=== PATIENT | male | born 1990 | race Two or more races ===

== ENCOUNTER → 2017-08-02 | Emergency (ER) | payer OTHER ==
[~2017-08-02] VITALS: Ht 177.8 cm; Wt 106.6 kg
[~2017-08-02] MED LIST: AMOX1TAB12 PO; DOLOGESIC-DF 51 EACH PO; IMODIUM A-D2 MG PO; PEPCID40 MG PO; ZOFRAN4 MG PO
== END | disposition home or self-care (01) ==
LOC: ER 20:55
DX: G44.209 Tension-type headache, unspecified, not intractable (principal)

== ENCOUNTER 2017-11-13 17:53 | Emergency (ER) | payer OTHER ==
[~2017-11-13] VITALS: Ht 175.3 cm; Wt 108.9 kg
[2017-11-13] MEDS ORDERED: LOSARTAN POTASS25 MG PO (18:02)
== END 2017-11-13 20:04 | disposition home or self-care (01) ==
LOC: ER 17:53
DX: I10 Essential (primary) hypertension (principal)

== ENCOUNTER 2023-11-01 08:42 | Emergency (ER) | payer BC ==
[~2023-11-01] VITALS: Ht 175.3 cm; Wt 117.9 kg
[~2023-11-01 08:42] MED LIST changes: +LOSARTAN POTASS25 MG PO
[2023-11-01] MEDS ORDERED: LOSARTAN POTAS100 MG PO (09:06)
[2023-11-01] MEDS ORDERED: CEFTRIAXONE SODIUM 1,000 MG VIAL IV ONE (10:15)
[2023-11-01 10:33] LABS: PH,URINE 6.5 (5.0-8.0); URINE APPEARANCE Clear; URINE BILIRRUBIN Negative (NEGATIVE); URINE BLOOD Negative; URINE COLOR Yellow; URINE GLUCOSE Negative (NEGATIVE); URINE LEUKOCYTE Negative; URINE NITRATE Negative; URINE PROTEIN Trace (NEGATIVE)
[2023-11-01 10:33] LABS: HEMOGLOBIN 16.5 g/dL (13-16.00); MEAN CELL VOLUME 89.2 fL (80.0-100.00); MEAN CORPUSCULAR HEMOGLOBIN 30.7 pg (27.00-32.0); MEAN CORPUSCULAR HGB CONC 34.4 g/dl (32.0-36.0); PLATELET COUNT 251 K/uL (150-450); RED BLOOD COUNT 5.38 M/uL (4.00-6.00); RED CELL DISTRIBUTION WIDTH 13.4 % (11.5-14.5)
[2023-11-01 10:36] LABS: URINE BACTERIA 7.5 uL (0.0-1933); URINE EPITHELIAL CELLS 4.1 uL (0.0-38.8); URINE RBC 19.4 uL (0.0-20.8); URINE WBC 1.8 uL (0.0-23.2)
[2023-11-01 10:51] LABS: ALBUMIN 4.3 gm/dL (3.4-5.0); BILIRUBIN TOTAL 0.37 mg/dL (0.3-1.2); CALCIUM 9.5 mg/dL (8.5-10.1); GFR 86.59; GLOBULINA 3.5 G/DL (2.4-3.5); POTASSIUM 4.42 mEq/L (3.5-5.1); TOTAL PROTEIN 7.8 gm/dL (6.4-8.2)
[2023-11-01] MEDS ORDERED: LIDOCAINE HCL/EPINEPHRINE 10 ML VIAL IJ ONE (13:15)
[2023-11-01] MEDS ORDERED: ACETAMINOPHEN WITH CODEINE 1 UDTAB TABLET PO ONE (14:15)
== END 2023-11-01 14:41 | disposition home or self-care (01) ==
LOC: ER 08:43
PROVIDERS: Emergency Medicine
DX: N49.2 Inflammatory disorders of scrotum (principal); Z76.89 Persons encountering health services in other specified circumstances; I10 Essential (primary) hypertension

== ENCOUNTER 2025-07-10 07:44 | Emergency (ER) | payer OTHER ==
[~2025-07-10] VITALS: Ht 177.8 cm; Wt 108.0 kg
[~2025-07-10 07:44] MED LIST changes: +LOSARTAN POTAS100 MG PO
[2025-07-10] MEDS ORDERED: TOPROL XL50 M1 PO (08:08)
[2025-07-10] MEDS ORDERED: CETIRIZINE HCL 10 MG TABLET PO ONE ×2 (08:42→08:45)
[2025-07-10] MEDS ORDERED: GUAIFENESIN 600 MG TABLET.SA PO ONE (08:45)
[2025-07-10 09:37] LABS: COVID-19 AG NEGATIVE (NEGATIVE)
== END 2025-07-10 10:53 | disposition home or self-care (01) ==
LOC: ER 07:45
PROVIDERS: Emergency Medicine
DX: B34.8 Other viral infections of unspecified site (principal); J98.8 Other specified respiratory disorders; Z20.822 Contact with and (suspected) exposure to COVID-19; I10 Essential (primary) hypertension